=== PATIENT | female | born 1980 | race Caucasian/White ===

== ENCOUNTER 2017-06-07 12:12 | Emergency (ER) | payer SELFPAY ==
[~2017-06-07] VITALS: Ht 160 cm; Wt 97.5 kg
[2017-06-07] MEDS ORDERED: WELLBUTRIN XL150 MG PO (13:20)
[2017-06-07] MEDS ORDERED: ASPIRIN325 MG PO (13:20)
== END 2017-06-07 12:40 | disposition home or self-care (01) ==
LOC: ED 12:12
DX: S99.921A Unspecified injury of right foot, initial encounter (principal); W22.09XA Striking against other stationary object, initial encounter

== ENCOUNTER 2019-08-09 12:19 | Emergency (ER) | payer OTHER ==
[~2019-08-09] VITALS: Ht 162.6 cm; Wt 108.9 kg
[~2019-08-09 12:19] MED LIST: ASPIRIN325 MG PO; HYDROCHLOROTH12.5 M1 PO; NAPROSYN500 MG PO; WELLBUTRIN XL150 MG PO; ZESTRIL40 MG PO
[2019-08-09] MEDS ORDERED: ADDERALL 30 MG30 MG PO (12:35)
[2019-08-09] MEDS ORDERED: NORCO 5-325 TA1 EACH PO (14:54)
== END 2019-08-09 15:17 | disposition home or self-care (01) ==
LOC: ED 12:19
DX: S30.1XXA Contusion of abdominal wall, initial encounter (principal); S20.212A Contusion of left front wall of thorax, initial encounter; F17.200 Nicotine dependence, unspecified, uncomplicated; Z88.2 Allergy status to sulfonamides; Z79.899 Other long term (current) drug therapy; Z79.82 Long term (current) use of aspirin; W19.XXXA Unspecified fall, initial encounter
CPT/HCPCS: 71046; 74177; 80053; 84703; 85025; 99284-25; Q9967

== ENCOUNTER 2021-07-02 20:19 | Emergency (ER) | payer OTHER ==
[~2021-07-02] VITALS: Ht 162.6 cm; Wt 108.9 kg
[~2021-07-02 20:19] MED LIST changes: +ADDERALL 30 MG30 MG PO; +NORCO 5-325 TA1 EACH PO
[2021-07-02] MEDS ORDERED: ONDANSETRON ODT8 MG PO (22:44)
[2021-07-02] MEDS ORDERED: CYCLOBENZAPRINE10 MG PO (22:44)
== END 2021-07-02 23:00 | disposition home or self-care (01) ==
LOC: ED 20:19
DX: U07.1 COVID-19 (principal); F17.200 Nicotine dependence, unspecified, uncomplicated; Z88.2 Allergy status to sulfonamides; Z79.82 Long term (current) use of aspirin; Z79.899 Other long term (current) drug therapy
CPT/HCPCS: 36415; 80048; 81001; 84703; 85025; 87502; 96374; 96375; 99284-25; J1200; J1885; J2405; J7030; U0003